=== PATIENT | male | born 1975 | race Caucasian/White ===

== ENCOUNTER → 2022-12-16 | Outpatient (CLI) | payer BC ==
--- NOTE | 2022-12-16 15:51 | NM ---
EXAMINATION TYPE: NM hepatobiliary w EF DATE OF EXAM: 12/16/2022 3:08 PM COMPARISON: None CLINICAL INDICATION:Male, 47 years old with history of R10.11 RIGHT UPPER QUADRANT PAIN; TECHNIQUE: The patient was given 4.81 mCi of Technetium 99m-Mebrofenin as a radiotracer and multiple scintigraphic images were obtained of the abdomen. Gallbladder function was also assessed after the administration of ensure drink and additional scintigraphic images were obtained of the abdomen. A re gion of interest was drawn over the gallbladder and a timing activity curve was generated. The gallbl adder ejection fraction was calculated. FINDINGS: Normal uptake of radiotracer was identified within the liver within 5 minutes with excretion into the hepatic and common biliary ducts within 15 minutes. There was normal progressive washout of the angel luis er over the course of the study. Radiotracer uptake within the gallbladder at 240 seconds as well as small bowel activity was identified. Maximum calculated gallbladder ejection fraction is: 80% at 30 minutes (Normal gallbladder ejection fraction is > 35%) IMPRESSION: 1. Normal hepatobiliary scan. 2. Normal ejection fraction.
== END | disposition home or self-care (01) ==
LOC: RADNMMAIN 12:57
PROVIDERS: ATTEND Family Medicine
DX: R10.11 Right upper quadrant pain (principal)
CPT/HCPCS: 78226; A9537

== ENCOUNTER → 2022-12-18 | Outpatient (CLI) | payer BC ==
--- NOTE | 2022-12-18 14:32 | CT ---
EXAMINATION TYPE: CT abdomen wo/w con DATE OF EXAM: 12/18/2022 COMPARISON: None HISTORY: RUQ pain CT DLP: 2651 mGycm Automated exposure control for dose reduction was used. TECHNIQUE: Helical acquisition of images was performed from the lung bases through the top of iliac crest to include entire abdomen. CONTRAST: Performed with Oral Contrast and with IV Contrast, patient injected with 100 mL of Isovue 300. FINDINGS: There is a 13.3 mm solid pulmonary nodule in the right middle lobe which is suspicious for neoplasm. PET scan or direct tissue sampling is recommended for further evaluation. It is amenable to CT-guided lung biopsy. The gallbladder is normal without gallstones, wall thickening, pericholecystic fluid or distention. T here is no biliary ductal dilatation. There is no focal mass or organomegaly involving the liver, pancreas, spleen or adrenal glands. The kidneys excrete contrast promptly and symmetrically is no solid renal mass or hydronephrosis. The re is a small parapelvic cyst of the left kidney. There is no retroperitoneal adenopathy or hemorrhag e in the caliber the abdominal aorta is normal. The bowel loops are normal in caliber and there is no evidence of dilatation or obstruction. No infla mmatory changes are identified in the bowel wall or mesentery and there is no free intraperitoneal ai r or fluid. Within the visualized osseous structures, there are no focal lytic or blastic osseous abnormalities IMPRESSION: 1. 13.3 mm nodule in the right lower lobe suspicious for neoplasm. Further evaluation is warranted as described above. 2. No significant abnormality within the abdomen.
== END | disposition home or self-care (01) ==
LOC: RADCTMAIN 12:50
PROVIDERS: ATTEND Family Medicine
DX: R10.11 Right upper quadrant pain (principal); R91.1 Solitary pulmonary nodule
CPT/HCPCS: 74170; Q9967

== ENCOUNTER → 2023-05-31 | Outpatient (CLI) | payer BC ==
--- NOTE | 2023-05-31 14:24 | CT ---
EXAMINATION TYPE: CT chest w con CT DLP: DLP 461.40 mGycm, Automated exposure control for dose reduction was used. DATE OF EXAM: 05/31/2023 2:12 PM COMPARISON: PET CT 12/26/2022 CLINICAL INDICATION:Male, 47 years old with history of SPN; PHH, follow up on lung nodule. Scanned b y SO/AH TECHNIQUE: Multiple axial images were obtained through the chest following the administration of 100 cc of Isovue 300. . Coronal and sagittal reformats reviewed. FINDINGS: LUNGS/ PLEURA: No pleural effusion, pneumothorax, focal consolidation. Stable right middle lobe 1.2 cm pulmonary nodule (series 4, image 37). No significant FDG avidity on prior PET/CT. No new or enlar ging pulmonary nodules. AIRWAY: Patent and unremarkable.. HEART: Mildly prominent size. No pericardial effusion. MEDIASTINUM: Stable enlarged 1.7 cm subcarinal lymph node. No significant FDG avidity on prior PET/CT . VASCULATURE: No aortic aneurysm. MUSCULOSKELETAL: Mild disc degeneration changes are present throughout the thoracolumbar spine. No ac philomena osseous abnormality. No aggressive osseous lesion. SOFT TISSUES/LYMPH NODES: Unremarkable. LOWER NECK: No significant findings. UPPER ABDOMEN: No significant findings. IMPRESSION: 1. Stable right middle lobe 1.2 cm pulmonary nodule. No new or enlarging pulmonary nodules. No signif icant FDG avidity on prior PET/CT. Annual surveillance is required. 2. Stable enlarged 1.7 cm subcarinal lymph node. No significant FDG avidity on prior PET/CT. Attentio n on follow-up exam.
== END | disposition home or self-care (01) ==
LOC: RADCTMAIN 13:48
PROVIDERS: ATTEND Internal Medicine Critical Care Medicine
DX: R91.1 Solitary pulmonary nodule (principal); J84.10 Pulmonary fibrosis, unspecified; R59.0 Localized enlarged lymph nodes
CPT/HCPCS: 71260; Q9967

== ENCOUNTER → 2024-06-05 | Outpatient (CLI) | payer BC ==
--- NOTE | 2024-06-05 15:30 | CT ---
EXAMINATION TYPE: CT chest w con CT DLP: 703 mGycm, Automated exposure control for dose reduction was used. DATE OF EXAM: 06/05/2024 1:35 PM COMPARISON: CT chest 05/31/2023, PET/CT 12/26/2022 CLINICAL INDICATION:Male, 48 years old with history of R91.1 SPN; PHH, F/U, LUNG NODULE TECHNIQUE: Multiple axial images were obtained through the chest following the administration of 100 cc of Isovue 300. . Coronal and sagittal reformats reviewed. FINDINGS: LUNGS/ PLEURA: No pleural effusion, pneumothorax, focal consolidation. Stable right middle lobe 1.2 cm pulmonary nodule (series 4, image 34). No significant FDG avidity on prior PET/CT. No new or enlar ging pulmonary nodules. AIRWAY: Patent and unremarkable.. HEART: Mildly prominent size. No pericardial effusion. MEDIASTINUM: Stable enlarged 1.6 cm subcarinal lymph node. No significant FDG avidity on prior PET/CT . VASCULATURE: No aortic aneurysm. MUSCULOSKELETAL: Mild disc degeneration changes are present throughout the thoracolumbar spine. No ac [place] osseous abnormality. No aggressive osseous lesion. SOFT TISSUES/LYMPH NODES: Unremarkable. LOWER NECK: No significant findings. UPPER ABDOMEN: Stable subcentimeter peripheral right hepatic lobe hypodense lesion which is too small to characterize but likely represents a cyst. IMPRESSION: 1. Stable right middle lobe 1.2 cm pulmonary nodule. No new or enlarging pulmonary nodules. No signif icant FDG avidity on prior PET/CT. Follow-up CT chest in one year is recommended. 2. Stable enlarged 1.7 cm subcarinal lymph node. No significant FDG avidity on prior PET/CT. Attentio n on follow-up exam. [facility], , 06/05/2024 3:27 PM
== END | disposition home or self-care (01) ==
LOC: RADCTMAIN 13:06
PROVIDERS: ATTEND Internal Medicine Critical Care Medicine
DX: R91.1 Solitary pulmonary nodule
CPT/HCPCS: 71260